=== PATIENT | female | born 1960 | race Caucasian/White ===

== ENCOUNTER 2018-04-02 04:56 | Observation (INO) | payer MEDICARE, MEDICAID ==
[2018-04-02] MEDS ORDERED: ASPIRIN 81 MG TABLET, CHEWABLE PO ONE (05:37)
[2018-04-02 05:48] LABS: HEMATOCRIT 47.5 % (36.0-47.0); HEMOGLOBIN 16.4 g/dL (12.0-15.5); MEAN CORPUSCULAR HEMOGLOBIN 32.7 pg (27.0-33.4); MEAN CORPUSCULAR HGB CONC 34.4 g/dL (32.0-36.0); MEAN CORPUSCULAR VOLUME 95 fl (80-97); PLATELET COUNT 174 10^3/uL (150-450); RED CELL DISTRIBUTION WIDTH 12.8 % (11.5-14.0); WHITE BLOOD COUNT 9.5 10^3/uL (4.0-10.5)
[2018-04-02 06:06] LABS: CREATINE KINASE MB 2.98 ng/mL (<4.55)
[2018-04-02 06:08] LABS: TROPONIN I 1.14 ng/mL
[2018-04-02 06:15] LABS: ABSOLUTE LYMPHOCYTES# (MANUAL) 4.2 10^3/uL (0.5-4.7); ABSOLUTE MONOCYTES # (MANUAL) 0.6 10^3/uL (0.1-1.4); ABSOLUTE NEUTROPHILS# (MANUAL) 3.7 10^3/uL (1.7-8.2); BASOPHILS % (MANUAL) 0 % (0-2); EOSINOPHILS % (MANUAL) 11 % (0-6); LYMPHOCYTES % (MANUAL) 44 % (13-45); MONOCYTES % (MANUAL) 6 % (3-13); SEGMENTED NEUTROPHILS % (MAN) 39 % (42-78); TOTAL CELLS COUNTED 100
[2018-04-02 06:18] LABS: PLATELET COMMENT ADEQUATE; RBC MORPHOLOGY COMMENT NORMO-CYTIC/CHROMIC
[2018-04-02 06:21] LABS: ALANINE AMINOTRANSFERASE 27 U/L (9-52); ALBUMIN 4.4 g/dL (3.5-5.0); ALKALINE PHOSPHATASE 70 U/L (38-126); ANION GAP 11 (5-19); ASPARTATE AMINO TRANSFERASE 49 U/L (14-36); BILIRUBIN,DIRECT 0.4 mg/dL (0.0-0.4); BILIRUBIN,TOTAL 0.4 mg/dL (0.2-1.3); BLOOD UREA NITROGEN 12 mg/dL (7-20); CALCIUM 9.9 mg/dL (8.4-10.2); CARBON DIOXIDE 26 mmol/L (22-30); CHLORIDE 110 mmol/L (98-107); CREATINE KINASE 85 U/L (30-135); GLUCOSE 94 mg/dL (75-110); POTASSIUM 4.5 mmol/L (3.6-5.0); SODIUM 146.7 mmol/L (137-145)
--- NOTE | 2018-04-02 06:21 | ER Document Report ---
ED Cardiac - General TRAVEL OUTSIDE OF THE [place] IN LAST 30 DAYS: No - HPI Patient complains to provider of: Chest pain Was the onset of pain: Sudden Chest pain location: Substernal Quality of pain: None Chest pain radiation location: Neck Cardiac risk factors: Smoker, + Family history <AMELIA FONSECA - Last Filed: 04/02/18 06:28> <SHAYLA HUGHES - Last Filed: 04/02/18 10:52> - General Chief Complaint: Chest Pain Time Seen by Provider: 04/02/18 05:37 Notes: Patient is a 57-year-old female with a past history of hypothyroidism, COPD, smoking, and chronic neck pain who called EMS for chest pain that woke her from sleep. Upon arrival, EMS noted that her chest pain was sounded to 10. She received 324 mg of aspirin as well as 2 sublingual nitroglycerin which completely resolved her pain. She has had no further chest pain here in the emergency department. She denies any trouble breathing or nausea. States that the pain radiated to her neck but that has also resolved. Denies any history of coronary artery disease or congestive heart failure. Her family has had a strong history of coronary artery disease. Patient has never been seen for chest pain by physician. She apparently had similar symptoms 2 weeks ago, called EMS, and then did not want to be transported to the hospital. (AMELIA FONSECA) - Related Data Allergies/Adverse Reactions: Sulfa (Sulfonamide Antibiotics) Allergy (Verified 04/02/18 05:45) shellfish derived Adverse Reaction (Verified 04/02/18 05:45) Past Medical History - Social History Smoking Status: Current Every Day Smoker Chew tobacco use (# tins/day): No Frequency of alcohol use: Occasional Drug Abuse: None Lives with: Alone Family History: CAD, DM Patient has suicidal ideation: No Patient has homicidal ideation: No Pulmonary Medical History: Reports: Hx COPD Endocrine Medical History: Reports: Hx Hypothyroidism Renal/ Medical History: Denies: Hx Peritoneal Dialysis Musculoskeletal Medical History: Reports None Past Surgical History: Reports: Other - Cervical fusion <AMELIA FONSECA - Last Filed: 04/02/18 06:28> Review of Systems - Review of Systems Constitutional: No symptoms reported EENT: No symptoms reported Cardiovascular: See HPI Respiratory: No symptoms reported Gastrointestinal: No symptoms reported Genitourinary: No symptoms reported Female Genitourinary: No symptoms reported Musculoskeletal: No symptoms reported Skin: No symptoms reported Hematologic/Lymphatic: No symptoms reported Neurological/Psychological: No symptoms reported <AMELIA FONSECA - Last Filed: 04/02/18 06:28> Physical Exam - Vital signs Interpretation: Normal - General General appearance: Appears well, Alert - HEENT Head: Normocephalic, Atraumatic Eyes: Normal Pupils: PERRL - Respiratory Respiratory status: No respiratory distress Chest status: Nontender Breath sounds: Normal Chest palpation: Normal - Cardiovascular Rhythm: Regular Heart sounds: Normal auscultation Murmur: No - Abdominal Inspection: Normal Distension: No distension Bowel sounds: Normal Tenderness: Nontender Organomegaly: No organomegaly - Back Back: Normal, Nontender - Extremities General upper extremity: Normal inspection, Nontender, Normal color, Normal ROM , Normal temperature General lower extremity: Normal inspection, Nontender, Normal color, Normal ROM , Normal temperature, Normal weight bearing. No: Janice's sign - Neurological Neuro grossly intact: Yes Cognition: Normal Orientation: AAOx4 Willie Coma Scale Eye Opening: Spontaneous Willie Coma Scale Verbal: Oriented Willie Coma Scale Motor: Obeys Commands Willie Coma Scale Total: 15 Speech: Normal Motor strength normal: LUE, RUE, LLE, RLE Sensory: Normal - Psychological Associated symptoms: Normal affect, Normal mood - Skin Skin Temperature: Warm Skin Moisture: Dry Skin Color: Normal <AMELIA FONSECA - Last Filed: 04/02/18 06:28> - Vital signs Vitals: Pulse Ox 91 L 04/02/18 05:44 Course - Laboratory Result Diagrams: 04/02/18 04:32 04/02/18 04:32 - Diagnostic Test Radiology reviewed: Reports reviewed - EKG Interpretation by Nd EKG shows normal: Sinus rhythm Rate: Normal Rhythm: NSR <AMELIA FONSECA - Last Filed: 04/02/18 06:28> - Laboratory Result Diagrams: 04/02/18 04:32 04/02/18 04:32 - Consults Dr. Goodman Time consulted: 09:05 Consulted provider: will come to ER <SHAYLA HUGHES - Last Filed: 04/02/18 10:52> - Re-evaluation Re-evalutation: 04/02/18 06:31 Patient is a 57-year-old female who comes in complaining of chest pain prior to arrival. She was given aspirin and 2 nitroglycerin prior to arrival which completely resolved her chest pain. She has had no further chest pain here in the emergency department in no acute changes on EKG. Troponin is 1.1. Patient was discussed with Dr. Merritt to see if this patient with a likely and STEMI could stay here for further evaluation. Recommends doing repeat EKG and repeat troponin and then call to discuss. Patient care will be transitioned to Dr. Hughes at 0630am. (AMELIA FONSECA) 04/02/18 07:56 The first troponin was 1.14, 2 hours later is 1.[address] Dr. Merritt wants to exclude PE, but feels the patient can be admitted here. I will do a d-dimer before going to CTA chest. (SHAYLA HUGHES) - Vital Signs Vital signs: Temp Pulse Resp BP Pulse Ox 17 142/99 H 95 04/02/18 10:03 04/02/18 10:03 04/02/18 10:03 - Laboratory Laboratory results interpreted by me: 04/02/18 04/02/18 04:32 04:32 Hgb 16.4 H Hct 47.5 H Seg Neuts % (Manual) 39 L Eosinophils % (Manual) 11 H Absolute Eos (Manual) 1.0 H Sodium 146.7 H Chloride 110 H AST 49 H Discharge <AMELIA FONSECA - Last Filed: 04/02/18 06:28> - Discharge Admitting Provider: Hospitalist Unit Admitted: Telemetry <SHAYLA HUGHES - Last Filed: 04/02/18 10:52> - Discharge Clinical Impression: NSTEMI (non-ST elevated myocardial infarction) Condition: Stable Disposition: ADMITTED OBSERVATION Referrals: JULISSA TIDWELL, [Primary Care Provider] - Follow up as needed
--- NOTE | 2018-04-02 07:50 | RADIOLOGY REPORT (SQ) ---
EXAM DESCRIPTION: CHEST SINGLE VIEW COMPLETED DATE/TIME: 04/02/2018 5:55 am REASON FOR STUDY: Chest pain COMPARISON: None. EXAM PARAMETERS: NUMBER OF VIEWS: One view. TECHNIQUE: Single frontal radiographic view of the chest acquired. RADIATION DOSE: NA LIMITATIONS: None. FINDINGS: LUNGS AND PLEURA: No opacities, masses or pneumothorax. No pleural effusion. MEDIASTINUM AND HILAR STRUCTURES: No masses. Contour normal. HEART AND VASCULAR STRUCTURES: Heart normal in size. Normal vasculature. BONES: No acute changes. Lower cervical fusion hardware HARDWARE: None in the chest. OTHER: No other significant finding. IMPRESSION: NO ACUTE RADIOGRAPHIC FINDING IN THE CHEST. TECHNICAL DOCUMENTATION: JOB ID: [id number] [employer]- All Rights Reserved Reading location - IP/workstation name: [email or web address]
[2018-04-02] MEDS ORDERED: ONDANSETRON 4 MG TAB.RAPDIS PO PRN (09:29)
[2018-04-02] MEDS ORDERED: OXYCODONE-ACETAMINOPHEN 5-325 MG TABLET PO PRN (09:29)
--- NOTE | 2018-04-02 09:48 | PDOC H&P ---
History of Present Illness Admission Date/PCP: JULISSA TIDWELL DO History of Present Illness: ANTOINE RICHARDSON is a 57 year old female patient with past medical history of hypertension, hypothyroidism chronic neck pain and tobacco dependence presents with chief complaint of chest pain. Patient reports this she has had on and off chest pain for the last 1 week but yesterday at about 3 AM in the morning it woke her up from sound sleep and describes the chest pain as pressure-like to the center of her chest nonradiating and about 7 out of 10 on pain scale. Patient denies fever, cough, palpitation, diaphoresis, nausea, vomiting or change in her bowel habits. No dizziness, blurry of vision or any seizure activity. Patient has strong family history of coronary artery disease and she has been also smoking since age 15. Her first set of cardiac enzyme is 1.140 her d-dimer is negative. Dr. Merritt is consulted on this patient Past Medical History Pulmonary Medical History: Reports: Chronic Obstructive Pulmonary Disease (COPD) Endocrine Medical History: Reports: Hypothyroidism Musculoskeltal Medical History: Reports: None Past Surgical History Past Surgical History: Reports: Other - Cervical fusion Social History Lives with: Alone Smoking Status: Current Every Day Smoker Frequency of Alcohol Use: None Hx Recreational Drug Use: No Drugs: None - Advance Directive Resuscitation Status: Full Code Family History Family History: CAD, DM Parental Family History Reviewed: Yes Children Family History Reviewed: Yes Sibling(s) Family History Reviewed.: Yes Medication/Allergy Allergies/Adverse Reactions: Sulfa (Sulfonamide Antibiotics) Allergy (Verified 04/02/18 05:45) shellfish derived Adverse Reaction (Verified 04/02/18 05:45) Review of Systems Constitutional: PRESENT: as per HPI Ears: PRESENT: as per HPI Cardiovascular: PRESENT: as per HPI Gastrointestinal: PRESENT: as per HPI Musculoskeletal: PRESENT: as per HPI Neurological: PRESENT: as per HPI Physical Exam Vital Signs: Temp Pulse Resp BP Pulse Ox 16 106/76 94 04/02/18 07:01 04/02/18 07:01 04/02/18 07:01 Intake & Output 04/01/18 04/02/18 04/03/18 06:59 06:59 06:59 Weight 63.8 kg General appearance: PRESENT: no acute distress, well-developed, well-nourished Head exam: PRESENT: atraumatic, normocephalic Eye exam: PRESENT: conjunctiva pink, EOMI, PERRLA. ABSENT: scleral icterus Ear exam: PRESENT: normal external ear exam Mouth exam: PRESENT: moist, tongue midline Neck exam: ABSENT: carotid bruit, JVD, lymphadenopathy, thyromegaly Respiratory exam: PRESENT: clear to auscultation tank. ABSENT: rales, rhonchi, wheezes Cardiovascular exam: PRESENT: RRR. ABSENT: diastolic murmur, rubs, systolic murmur Pulses: PRESENT: normal dorsalis pedis pul Vascular exam: PRESENT: normal capillary refill GI/Abdominal exam: PRESENT: normal bowel sounds, soft. ABSENT: distended, guarding, mass, organolmegaly, rebound, tenderness Rectal exam: PRESENT: deferred Extremities exam: PRESENT: full ROM. ABSENT: calf tenderness, clubbing, pedal edema Neurological exam: PRESENT: alert, awake, oriented to person, oriented to place , oriented to time, oriented to situation. ABSENT: motor sensory deficit Psychiatric exam: PRESENT: appropriate affect, normal mood. ABSENT: homicidal ideation, suicidal ideation Skin exam: PRESENT: dry, intact, warm. ABSENT: cyanosis, rash Results Laboratory Results: 04/02/18 04:32 04/02/18 04:32 04/02/18 04/02/18 04:32 04:32 WBC 9.5 RBC 5.00 Hgb 16.4 H Hct 47.5 H MCV 95 MCH 32.7 MCHC 34.4 RDW 12.8 Plt Count 174 Seg Neutrophils % Not Reportable Lymphocytes % Not Reportable Monocytes % Not Reportable Eosinophils % Not Reportable Basophils % Not Reportable Absolute Neutrophils Not Reportable Absolute Lymphocytes Not Reportable Absolute Monocytes Not Reportable Absolute Eosinophils Not Reportable Absolute Basophils Not Reportable Sodium 146.7 H Potassium 4.5 Chloride 110 H Carbon Dioxide 26 Anion Gap 11 BUN 12 Creatinine 0.75 Est GFR ( Amer) > 60 Est GFR (Non-Af Amer) > 60 Glucose 94 Calcium 9.9 Total Bilirubin 0.4 AST 49 H ALT 27 Alkaline Phosphatase 70 Total Protein 8.0 Albumin 4.4 04/02/18 04/02/18 04/02/18 04:32 04:32 06:30 Creatine Kinase 85 CK-MB (CK-2) 2.98 Troponin I 1.140 1.040 Impressions: Chest X-Ray 04/02/18 05:38 IMPRESSION: NO ACUTE RADIOGRAPHIC FINDING IN THE CHEST. Assessment & Plan - Diagnosis (1) NSTEMI (non-ST elevated myocardial infarction) Is this a current diagnosis for this admission?: Yes Plan: Patient scheduled for stress test. (2) COPD (chronic obstructive pulmonary disease) Qualifiers: Emphysema type: unspecified Is this a current diagnosis for this admission?: Yes Plan: Without exacerbation. We will put her on as needed bronchodilators. (3) Hypertension Qualifiers: Hypertension type: essential hypertension Qualified Code(s): I10 - Essential (primary) hypertension Is this a current diagnosis for this admission?: Yes Plan: Patient is not on any medication. (4) Hypothyroidism Qualifiers: Hypothyroidism type: acquired Qualified Code(s): E03.9 - Hypothyroidism, unspecified Is this a current diagnosis for this admission?: Yes Plan: We will continue her home Synthroid. (5) Tobacco dependence Is this a current diagnosis for this admission?: Yes Plan: Patient counseled and encouraged to quit smoking
[2018-04-02] MEDS ORDERED: ENOXAPARIN SODIUM INJ 40 MG/0.4 ML DISP.SYRIN SUBCUT SCH (10:00)
[2018-04-02] MEDS ORDERED: NITROGLYCERIN 0.4 MG/TAB 25 TAB/BOTTLE SL PRN (10:43)
[2018-04-02] MEDS ORDERED: CLOPIDOGREL BISULFATE 75 MG TABLET PO SCH (12:00)
--- NOTE | 2018-04-02 19:53 | PDOC CONSULTATION ---
Consultation Consult Date: 04/02/18 Attending physician:: BEREKET PERES Consult reason:: Chest pain and positive troponin I History of Present Illness Admission Date/PCP: 04/02/18 10:56 JULISSA TIDWELL DO Patient complains of: Chest pain History of Present Illness: ANTOINE RICHARDSON is a 57 year old female patient with past medical history of hypertension, hypothyroidism chronic neck pain and tobacco dependence presents with chief complaint of chest pain. Patient reports this she has had on and off chest pain for the last 1 week but yesterday at about 3 AM in the morning it woke her up from sound sleep and describes the chest pain as pressure-like to the center of her chest nonradiating and about 7 out of 10 on pain scale. Patient denies fever, cough, palpitation, diaphoresis, nausea, vomiting or change in her bowel habits. No dizziness, blurry of vision or any seizure activity. Patient has strong family history of coronary artery disease and she has been also smoking since age 15. Her first set of cardiac enzyme is 1.140 her d-dimer is negative. Dr. Merritt is consulted on this patient. This history obtained by the hospitalist was reviewed and confirmed. I saw the patient at around 12 noon. At that time patient was completely chest pain- free. Her initial EKGs were noted to be normal. I did offer her cardiac catheterization but she declined to pursue that. She was told that this was the preferred treatment and that most likely she would end up needing intervention. Patient also did not want to be transferred to a tertiary care at that time. Subsequently, I was called again at around 3 PM and was informed that her troponin I went up. An EKG was ordered. On review of EKG at around 7 PM by me, showed that patient had minor ST segment depression. Also on pressing the patient about whether she had absolutely any chest pain or discomfort, she did admit to having tiny amount of chest pains in the chest. I again pressed on her that the preferred approach his heart catheterization and treating any lesions as noted by either coronary intervention or bypass surgery or just medical management depending on the degree of disease but heart catheterization would be the best guide to pursue the best course of option. Patient consented for the heart catheterization and wished to be transferred to [place] for convenience. I subsequently got hold of Dr. Woods who kindly accepted the patient. Patient to be transferred to [facility] for cardiac catheterization tomorrow. This was explained to the patient. Hospitalist and nurse informed. In the meantime, patient stable hemodynamically. Nurses on the fourth floor told me that they are comfortable looking after her and will keep a close eye on her till transfer. Patient currently on a monitored bed. Patient to continue to receive aspirin, Plavix, statin, beta-luciano, Lovenox. Past Medical History Cardiac Medical History: Reports: Hypertension Pulmonary Medical History: Reports: Bronchitis, Chronic Obstructive Pulmonary Disease (COPD) Denies: Asthma Endocrine Medical History: Reports: Hypothyroidism GI Medical History: Denies: Gastroesophageal Reflux Disease Musculoskeltal Medical History: Reports: None, Arthritis Psychiatric Medical History: Reports: Depression Past Surgical History Past Surgical History: Reports: Other - Cervical fusion Social History Information Source: Patient Lives with: Alone Smoking Status: Current Every Day Smoker Frequency of Alcohol Use: None Hx Recreational Drug Use: No Drugs: None - Advance Directive Resuscitation Status: Full Code Surrogate healthcare decision maker:: Patient sister is the surrogate decision-maker Family History Family History: CAD, DM Parental Family History Reviewed: Yes Children Family History Reviewed: Yes Sibling(s) Family History Reviewed.: Yes Medication/Allergy Home Medications: Levothyroxine Sodium [Synthroid] 125 mcg PO DAILY 04/02/18 Meloxicam [Mobic] 15 mg PO DAILY 04/02/18 Pregabalin [Lyrica] 150 mg PO Q8 04/02/18 Umeclidinium Brm/Vilanterol Tr [Anoro Ellipta 62.5-25 Mcg INH] 1 each IH DAILY 04/02/18 Allergies/Adverse Reactions: Sulfa (Sulfonamide Antibiotics) Allergy (Verified 04/02/18 05:45) shellfish derived Adverse Reaction (Verified 04/02/18 05:45) Review of Systems Review of Systems: Please see history of present illness and past medical history as wall. Constitutional: No fever or chills reported. Head : No recent chronic headaches, recent head injury. Eyes: No recent eye pain, diplopia, redness, discharge, acute visual changes. Ears: No recent chronic ear pain, acute hearing loss, ear discharge. Oral cavity: No recent ulcerations, bleeding, oral cavity discomfort. Neck: No recent acute neck pain reported. Hematologic: No recent easy bruising or bleeding. Lymphatic: No recent lymph node enlargement reported. Cardiovascular system review: See history of present illness. Respiratory system review: No hemoptysis or blood clots in the lungs reported. Mild Shortness of breath on exertion Gastrointestinal system review: Negative for any recent acute hematemesis, melena. Genitourinary system review: No recent acute or chronic hematuria, flank pain, UTI etc. reported. Skin system review: Negative for any recent abnormal bruising, no rash, no pruritus reported. Neurologic: No prior history of strokes, mini strokes, seizure disorder. Psychologic: No history of major psychosis or major depression reported. Musculoskeletal: Minor aches and pains reported. No acute joint swelling reported. Describes history of chronic neck pain Endocrine: No recent polyuria, polydipsia, recent heat or cold intolerance. Physical Exam Vital Signs: Temp Pulse Resp BP Pulse Ox 97.7 F 84 17 149/99 H 97 04/02/18 13:22 04/02/18 14:00 04/02/18 13:22 04/02/18 13:22 04/02/18 13:22 Intake & Output 04/01/18 04/02/18 04/03/18 06:59 06:59 06:59 Weight 63.3 kg Exam: GENERAL: well-nourished and in no acute distress. Alert and oriented x3 HEAD: Atraumatic, normocephalic. EYES: Pupils equal round and reactive to light, extraocular movements intact, sclera anicteric, conjunctiva are normal. ENT: TMs normal, nares patent, oropharynx clear without exudates. Moist mucous membranes. No oral ulcerations or bleeding gums noted NECK: supple without lymphadenopathy. Trachea is central. No cervical or axillary lymphadenopathy noted. Carotids are 2+, JVD WNL LUNGS: Respiration seems nonlabored, no significant accessory muscle action noted. Breath sounds clear to auscultation bilaterally and equal noted. No wheezes rales or rhonchi noted. No significant dullness noted on percussion. CHEST: Palpation of the chest wall shows no significant chest wall tenderness. HEART: [place] [employer], No PSH, 1/6 JULITO aortic area, 1/6 johnson systolic murmur mitral area, no rubs, no gallops. ABDOMEN: Soft, no significant tenderness appreciated, normoactive bowel sounds. No guarding, no rebound. No rigidity noted . No masses appreciated. EXTREMITIES: Pedal pulses are 1-2+, no calf tenderness noted. No clubbing or cyanosis. negative pedal edema noted NEUROLOGICAL: Focused neurological exam showed no significant neurologic deficit. Normal speech, no focal weakness appreciated. PSYCH: Normal mood, normal affect. Judgment and insight within normal limits. SKIN: No significant ecchymosis, skin is noted to be warm. MUSCULOSKELETAL EXAM: No significant acute joint swelling noted. Results Laboratory Results: 04/02/18 15:00 Troponin I 1.160 EKG Comments: Initial EKG shows sinus rhythm without any acute ST-T wave changes. Subsequent EKG shows minor ST segment depression in precordial leads. Impressions: Chest X-Ray 04/02/18 05:38 IMPRESSION: NO ACUTE RADIOGRAPHIC FINDING IN THE CHEST. Assessment & Plan - Diagnosis (1) NSTEMI (non-ST elevated myocardial infarction) Is this a current diagnosis for this admission?: Yes (2) COPD (chronic obstructive pulmonary disease) Qualifiers: Emphysema type: unspecified Is this a current diagnosis for this admission?: Yes (3) Hypertension Qualifiers: Hypertension type: essential hypertension Qualified Code(s): I10 - Essential (primary) hypertension Is this a current diagnosis for this admission?: Yes (4) Hypothyroidism Qualifiers: Hypothyroidism type: acquired Qualified Code(s): E03.9 - Hypothyroidism, unspecified Is this a current diagnosis for this admission?: Yes (5) Tobacco dependence Is this a current diagnosis for this admission?: Yes - Notes Notes: Non-STEMI: Please see discussion under HPI. Patient being adequately treated. Will consider starting patient on Aggrastat if needed. Patient to be closely monitored for any deterioration until transferred to [place]. Patient explained risk benefits of transfer. COPD: Currently stable. Tobacco abuse: Patient has been advised not to smoke. Hypertension: Currently under satisfactory control. Hypothyroidism: Continue replacement therapy. - Time Time Spent: 50 to 70 Minutes - CODE STATUS was discussed, patient remains full code. Surrogate decision-maker unchanged. Multiple medical problems were addressed. More than 50% of the time spent coordinating care, discussing management plans with involved caregivers. Management plans discussed with involved personnels. Medical decision making was of moderate to high complexity , patient's has multiple comorbidities. Medications reviewed and adjusted accordingly: Yes
--- NOTE | 2018-04-02 19:57 | PDOC DISCHARGE SUMMARY ---
General - Admit/Disc Date/PCP Admission Date/Primary Care Provider: 04/02/18 10:56 JULISSA TIDWELL, Discharge Date: 04/02/18 - Discharge Diagnosis (1) NSTEMI (non-ST elevated myocardial infarction) Is this a current diagnosis for this admission?: Yes (2) COPD (chronic obstructive pulmonary disease) Is this a current diagnosis for this admission?: Yes (3) Hypertension Is this a current diagnosis for this admission?: Yes (4) Hypothyroidism Is this a current diagnosis for this admission?: Yes (5) Tobacco dependence Is this a current diagnosis for this admission?: Yes - Additional Information Resuscitation Status: Full Code Home Medications: Levothyroxine Sodium [Synthroid] 125 mcg PO DAILY 04/02/18 Meloxicam [Mobic] 15 mg PO DAILY 04/02/18 Pregabalin [Lyrica] 150 mg PO Q8 04/02/18 Umeclidinium Brm/Vilanterol Tr [Anoro Ellipta 62.5-25 Mcg INH] 1 each IH DAILY 04/02/18 History of Present Illness History of Present Illness: ANTOINE RICHARDSON is a 57 year old female patient with past medical history of hypertension, hypothyroidism chronic neck pain and tobacco dependence presents with chief complaint of chest pain. Patient reports this she has had on and off chest pain for the last 1 week but yesterday at about 3 AM in the morning it woke her up from sound sleep and describes the chest pain as pressure-like to the center of her chest nonradiating and about 7 out of 10 on pain scale. Patient denies fever, cough, palpitation, diaphoresis, nausea, vomiting or change in her bowel habits. No dizziness, blurry of vision or any seizure activity. Patient has strong family history of coronary artery disease and she has been also smoking since age 15. Her first set of cardiac enzyme is 1.140 her d-dimer is negative. Dr. Merritt is consulted on this patient. This history obtained by the hospitalist was reviewed and confirmed. I saw the patient at around 12 noon. At that time patient was completely chest pain- free. Her initial EKGs were noted to be normal. I did offer her cardiac catheterization but she declined to pursue that. She was told that this was the preferred treatment and that most likely she would end up needing intervention. Patient also did not want to be transferred to a tertiary care at that time. Subsequently, I was called again at around 3 PM and was informed that her troponin I went up. An EKG was ordered. On review of EKG at around 7 PM by me, showed that patient had minor ST segment depression. Also on pressing the patient about whether she had absolutely any chest pain or discomfort, she did admit to having tiny amount of chest pains in the chest. I again pressed on her that the preferred approach his heart catheterization and treating any lesions as noted by either coronary intervention or bypass surgery or just medical management depending on the degree of disease but heart catheterization would be the best guide to pursue the best course of option. Patient consented for the heart catheterization and wished to be transferred to [place] for convenience. I subsequently got hold of Dr. Woods who kindly accepted the patient. Patient to be transferred to [facility] for cardiac catheterization tomorrow. This was explained to the patient. Hospitalist and nurse informed. In the meantime, patient stable hemodynamically. Nurses on the fourth floor told me that they are comfortable looking after her and will keep a close eye on her till transfer. Patient currently on a monitored bed. Patient to continue to receive aspirin, Plavix, statin, beta-juan, Lovenox. Hospital Course Hospital Course: ANTOINE RICHARDSON is a 57 year old female patient with past medical history of hypertension, hypothyroidism chronic neck pain and tobacco dependence presents with chief complaint of chest pain. Patient reports this she has had on and off chest pain for the last 1 week but yesterday at about 3 AM in the morning it woke her up from sound sleep and describes the chest pain as pressure-like to the center of her chest nonradiating and about 7 out of 10 on pain scale. Patient denies fever, cough, palpitation, diaphoresis, nausea, vomiting or change in her bowel habits. No dizziness, blurry of vision or any seizure activity. Patient has strong family history of coronary artery disease and she has been also smoking since age 15. Her first set of cardiac enzyme is 1.140 her d-dimer is negative. Dr. Merritt is consulted on this patient. This history obtained by the hospitalist was reviewed and confirmed. I saw the patient at around 12 noon. At that time patient was completely chest pain- free. Her initial EKGs were noted to be normal. I did offer her cardiac catheterization but she declined to pursue that. She was told that this was the preferred treatment and that most likely she would end up needing intervention. Patient also did not want to be transferred to a tertiary care at that time. Subsequently, I was called again at around 3 PM and was informed that her troponin I went up. An EKG was ordered. On review of EKG at around 7 PM by me, showed that patient had minor ST segment depression. Also on pressing the patient about whether she had absolutely any chest pain or discomfort, she did admit to having tiny amount of chest pains in the chest. I again pressed on her that the preferred approach his heart catheterization and treating any lesions as noted by either coronary intervention or bypass surgery or just medical management depending on the degree of disease but heart catheterization would be the best guide to pursue the best course of option. Patient consented for the heart catheterization and wished to be transferred to [place] for convenience. I subsequently got hold of Dr. Woods who kindly accepted the patient. Patient to be transferred to [facility] for cardiac catheterization tomorrow. This was explained to the patient. Hospitalist and nurse informed. In the meantime, patient stable hemodynamically. Nurses on the fourth floor told me that they are comfortable looking after her and will keep a close eye on her till transfer. Patient currently on a monitored bed. Patient to continue to receive aspirin, Plavix, statin, beta-juan, Lovenox. Physical Exam Vital Signs: Temp Pulse Resp BP Pulse Ox 97.7 F 84 17 149/99 H 97 04/02/18 13:22 04/02/18 14:00 04/02/18 13:22 04/02/18 13:22 04/02/18 13:22 Intake & Output 04/01/18 04/02/18 04/03/18 06:59 06:59 06:59 Weight 63.3 kg General appearance: PRESENT: no acute distress, well-developed, well-nourished Exam: Please see cardiology consultation note. No significant change from admission. Head exam: PRESENT: atraumatic, normocephalic Eye exam: PRESENT: conjunctiva pink, EOMI, PERRLA. ABSENT: scleral icterus Ear exam: PRESENT: normal external ear exam Mouth exam: PRESENT: moist, tongue midline Neck exam: ABSENT: carotid bruit, JVD, lymphadenopathy, thyromegaly Respiratory exam: PRESENT: clear to auscultation tank. ABSENT: rales, rhonchi, wheezes Cardiovascular exam: PRESENT: RRR. ABSENT: diastolic murmur, rubs, systolic murmur Pulses: PRESENT: normal dorsalis pedis pul Vascular exam: PRESENT: normal capillary refill GI/Abdominal exam: PRESENT: normal bowel sounds, soft. ABSENT: distended, guarding, mass, organolmegaly, rebound, tenderness Rectal exam: PRESENT: deferred Extremities exam: PRESENT: full ROM. ABSENT: calf tenderness, clubbing, pedal edema Neurological exam: PRESENT: alert, awake, oriented to person, oriented to place , oriented to time, oriented to situation, CN II-XII grossly intact. ABSENT: motor sensory deficit Psychiatric exam: PRESENT: appropriate affect, normal mood. ABSENT: homicidal ideation, suicidal ideation Skin exam: PRESENT: dry, intact, warm. ABSENT: cyanosis, rash Results Laboratory Results: 04/02/18 15:00 Troponin I 1.160 Impressions: Chest X-Ray 04/02/18 05:38 IMPRESSION: NO ACUTE RADIOGRAPHIC FINDING IN THE CHEST. Qualifiers - * PATIENT BEING DISCHARGED WITH ANY OF THE FOLLOWING DIAGNOSIS: No, FL VTE patient discharged on overlapping Therapy?: Yes Reason(s) for not prescribing Overlap Therapy:: Not indicated Reason(s) for not prescribing Anti-thrombolytic therapy:: Not indicated Stroke Pt being discharged on Statins?: Yes FL Pt being discharged on Aspirin therapy?: Yes FL Pt being discharged on Statins?: Yes FL Pt discharged ACEI/ARBS?: No Reason(s) for not prescribing ACEI/ARBS:: Compl of medication care HF Pt being discharged on ACEI for LVEF less than 40%?: No Reason(s) for not prescribing ACEI:: Not indicated HF Pt being discharged on ARBS for LVEF less than 40%?: No Reason(s) for not prescribing ARBS:: Not indicated HF Pt with Afib discharged with Warfarin?: No Reason(s) for not prescribing Warfarin:: Not indicated HF Pt discharged on evidence-based Beta Juan:: Yes Plan Discharge Plan: Transferred to [place] for heart cath and coronary intervention if needed. Time Spent: Greater than 30 Minutes - Transferred to [place]. Risk benefits of cardiac cath, management plans discussed with the patient in detail.
--- NOTE | 2018-04-02 20:19 | XCELERA REPORT ---
[address] [address] Transthoracic Echocardiogram Report Name: ANTOINE RICHARDSON Age: 57 yrs Gender: Female : 1960 Patient Status: Inpatient Patient Location: [address] [place] [address] Study Date: 04/02/2018 03:19 PM Procedure: A complete two-dimensional transthoracic echocardiogram was performed (2D, M-mode, spectral and color flow Doppler). The study was technically adequate with some images being suboptimal in quality. Reason For Study: NSTEMI Ordering Physician: BEREKET PERES Performed By: Marti Calvin Interpretation Summary The left ventricular ejection fraction is normal. There is borderline concentric left ventricular hypertrophy. The left ventricle is grossly normal size. Doppler measurements suggest pseudonormalized left ventricular relaxation, which is associated with grade II/IV or mild to moderate diastolic dysfunction Wall motion cannot be accurately commented on, but no definite regional wall motion abnormalities noted. Borderline right ventricular enlargement. The right ventricular systolic function is normal. The right atrium is normal. The left atrial size is normal. There is no mitral valve stenosis. There is no mitral regurgitation noted. There is no aortic valve stenosis No aortic regurgitation is present. There is no tricuspid stenosis. No tricuspid regurgitation. The aortic root is not well visualized but is probably normal size. The inferior vena cava was not well visualized There is no pericardial effusion. MMode/2D Measurements & Calculations RVDd: 2.9 cm LVIDd: 4.8 cm FS: 37.8 % Ao root diam: 2.4 cm IVSd: 0.83 cm LVIDs: 3.0 cm EDV(Teich): 108.9 mlAo root area: 4.6 cm2 LVPWd: 0.78 cmESV(Teich): 35.1 ml EF(Teich): 67.8 % LVOT diam: 1.4 cm LVOT area: 1.6 cm2 Doppler Measurements & Calculations MV E max peggy: MV dec slope: Ao V2 max: LV V1 max P.0 cm/sec 108.0 cm/sec 1.8 mmHg MV A max peggy: 309.3 cm/sec2 Ao max PG: LV V1 max: 64.9 cm/sec MV dec time: 4.7 mmHg 67.0 cm/sec MV E/A: 0.91 0.19 sec ASAF(V,D): 1.0 cm2 PA V2 max: 80.0 cm/sec PA max P.6 mmHg Left Ventricle The left ventricle is grossly normal size. There is borderline concentric left ventricular hypertrophy. The left ventricular ejection fraction is normal. Doppler measurements suggest pseudonormalized left ventricular relaxation, which is associated with grade II/IV or mild to moderate diastolic dysfunction. Wall motion cannot be accurately commented on, but no definite regional wall motion abnormalities noted. Right Ventricle Borderline right ventricular enlargement. There is normal right ventricular wall thickness. The right ventricular systolic function is normal. Atria The right atrium is normal. The left atrial size is normal. Interarterial septum not well visualized and not well dopplered. Cannot comment on ASD/PFO presence. Mitral Valve The mitral valve is grossly normal. There is no mitral valve stenosis. There is no mitral regurgitation noted. Aortic Valve The aortic valve is not well visualized secondary to technical limitations. There is no aortic valve stenosis. No aortic regurgitation is present. Tricuspid Valve The tricuspid valve is not well visualized, but is grossly normal. There is no tricuspid stenosis. No tricuspid regurgitation. Pulmonic Valve The pulmonic valve is not well visualized. Great Vessels The aortic root is not well visualized but is probably normal size. The inferior vena cava was not well visualized. Effusions There is no pericardial effusion. : BEREKET PERES > Eusebio Merritt
[2018-04-02 20:53] VITALS: BP 130/77
[2018-04-02] MEDS ORDERED: ATORVASTATIN CALCIUM 40 MG TABLET PO SCH (22:00)
[2018-04-02] MEDS ORDERED: ENOXAPARIN SODIUM INJ 80 MG/0.8 ML DISP.SYRIN SUBCUT SCH (22:00)
[2018-04-02] MEDS ORDERED: ENOXAPARIN SODIUM INJ 60 MG/0.6 ML DISP.SYRIN SUBCUT SCH (22:00)
[2018-04-02] MEDS ORDERED: CARVEDILOL 6.25 MG TABLET PO SCH (22:00)
--- NOTE | 2018-04-02 22:52 | EKG REPORT ---
SEVERITY:- BORDERLINE ECG - SINUS RHYTHM BORDERLINE ST DEPRESSION, ANTEROLATERAL LEADS : Confirmed by: Eusebio Merritt 02-Apr-2018 22:51:23
--- NOTE | 2018-04-02 22:52 | EKG REPORT ---
SEVERITY:- NORMAL ECG - SINUS RHYTHM : Confirmed by: Eusebio Merritt 02-Apr-2018 22:51:33
--- NOTE | 2018-04-02 22:52 | EKG REPORT ---
SEVERITY:- ABNORMAL ECG - SINUS RHYTHM BORDERLINE RIGHT AXIS DEVIATION : Confirmed by: Eusebio Merritt 02-Apr-2018 22:52:16
[2018-04-03] MEDS ORDERED: LANSOPRAZOLE 30 MG TAB.RAP.DR PO SCH (06:00)
[2018-04-03] MEDS ORDERED: ASPIRIN 325 MG TABLET PO SCH (10:00)
== END 2018-04-02 21:30 | disposition short-term general hospital (02) ==
LOC: ER 04:56 → EH 10:56 → 4N 13:40
PROVIDERS: ADMIT Internal Medicine; ATTEND Internal Medicine
DX: I21.4 Non-ST elevation (NSTEMI) myocardial infarction (principal); J44.9 Chronic obstructive pulmonary disease, unspecified; I10 Essential (primary) hypertension; E03.9 Hypothyroidism, unspecified; F17.200 Nicotine dependence, unspecified, uncomplicated; G89.29 Other chronic pain; M54.2 Cervicalgia; Z79.899 Other long term (current) drug therapy; Z82.49 Family history of ischemic heart disease and other diseases of the circulatory system; Z98.1 Arthrodesis status
CPT/HCPCS: 93005 ×2; 99285; 96374; 96375; 36415; 82553; 82550; 85025; 80053; 84484; 85379; 93306; 71045; 93010; G0378 ×2; J1650; J3490; A9270